=== PATIENT | female | born 2000 | race Caucasian/White ===

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

== ENCOUNTER 2020-06-17 15:52 | Outpatient (CLI) | payer BC ==
--- NOTE | 2020-06-17 21:14 | Ultrasound Report ---
PROCEDURE: Pelvic w/Transvaginal INDICATIONS: RT LOWER QUADRANT PAIN TECHNIQUE: Real-time scanning was performed of the pelvic organs, with image documentation. Additional endovagi nal scanning was necessary due to incomplete visualization of the adnexal and endometrial structures by transabdominal scanning. COMPARISON: None. FINDINGS: No pathologic free abdominal or pelvic fluid. Uterus: Uterus is normal in size at 5.5 x 2.2 x 3.6 cm. Mildly heterogeneous myometrial echotexture is seen. No discrete uterine fibroid is noted. The endometrium measures 4 mm in combined thickness. Ovaries: Right ovary measures 2.9 x 1.5 x 1.5 cm in size. Left ovary measures 1.4 x 1 x 1.3 cm in si ze other evaluation of left ovary is limited due to overlying bowel gas. Less than 12 small follicles are seen in right ovary. No gross solid appearing ovarian lesion is seen. IMPRESSION: 1. Mildly heterogeneous myometrial echotexture. No endometrial mass or fluid. 2. Normal-appearing right ovary. No solid appearing ovarian lesion. Left ovary is suboptimally evalua billy as above, no gross left adnexal abnormality is seen. Reviewed by: Allen Pérez MD on 06/17/2020 9:13 PM PST Approved by: Allen Pérez MD on 06/17/2020 9:13 PM PST Station ID: [id number]
== END 2020-06-17 15:53 | disposition home or self-care (01) ==
LOC: DI 15:52
PROVIDERS: ATTEND Nurse Practitioner Family
DX: R10.31 Right lower quadrant pain (principal)